=== PATIENT | male | born 1985 | race Caucasian/White ===

== ENCOUNTER 2024-11-20 13:57 | Outpatient (CLI) | payer BC, SELFPAY | END 2024-11-20 13:58 | disposition home or self-care (01) | LOC: LKVREF 14:05 | PROVIDERS: PCP Family Medicine; Visit Provider Family Medicine | DX: Z00.01 Encounter for general adult medical examination with abnormal findings (principal); Z13.228 Encounter for screening for other metabolic disorders; Z13.6 Encounter for screening for cardiovascular disorders | CPT/HCPCS: 80053; 80061 ==

== ENCOUNTER 2024-11-28 13:29 | Outpatient (CLI) | payer BC, SELFPAY ==
--- NOTE | 2024-11-28 14:00 | CRLHL7_ITS ---
For Patients: As a result of the Century Cures Act, medical imaging exams and procedure reports are released immediately into your electronic medical record. You may view this report before your referring provider. If you have questions, please contact your health care provider. INDICATION: RIGHT SCROTAL LUMP COMPARISON: none TECHNIQUE: Muro scale imaging was performed of the scrotum. In addition color Doppler and spectral Doppler analysis was performed of the testes. FINDINGS: The testes demonstrate normal arterial and venous blood flow on color Doppler and spectral Doppler analysis. The testes have uniform echogenicity with no evidence of a suspicious mass or area of inflammation. The right testis measures 5.9 x 2.7 x 4.0 cm in size and the left testis measures 6.0 x 2.4 x 3.7 cm. The epididymis appears normal bilaterally. There is no evidence of a hydrocele or varicocele. IMPRESSION: Normal scrotal ultrasound. Dictated by Raheel Villarreal MD @ 11/28/2024 3:50:48 PM (Electronically Signed)
== END 2024-11-28 13:30 | disposition home or self-care (01) ==
LOC: US 13:30
PROVIDERS: PCP Family Medicine; Visit Provider Family Medicine
DX: N50.3 Cyst of epididymis (principal)
CPT/HCPCS: 76870; 93976